=== PATIENT | male | born 1945 | race Caucasian/White ===

== ENCOUNTER 2017-10-04 18:20 | Emergency (ER) | payer MEDICARE, OTHER ==
[2017-10-04 18:59] VITALS: BP 123/71; PULSE 95; RESP 20; TEMP 97; O2SAT 97
== END 2017-10-04 18:42 | disposition home or self-care (01) | DRG 151 ==
LOC: ED 18:20
DX: R04.0 Epistaxis (principal); S00.81XA Abrasion of other part of head, initial encounter; W22.8XXA Striking against or struck by other objects, initial encounter
CPT/HCPCS: 99282

== ENCOUNTER 2018-04-24 09:34 | Inpatient (IN) | payer OTHER ==
[2018-04-24] MEDS ORDERED: ALBUTEROL/IPRATROPIUM 1 VIAL SOL ONE (09:41)
[2018-04-24] MEDS ORDERED: SODIUM CHLORIDE 0.9% 1000ML 1,000 ML IV ONE ×3 (09:43→09:46)
[2018-04-24] MEDS ORDERED: VANCOMYCIN HCL 500 MG PDS 1,000 MG in SODIUM CHLORIDE 0.9% 250 ML 250 ML IV ONE (09:44)
[2018-04-24] MEDS ORDERED: ALBUTEROL/IPRATROPIUM 1 VIAL SOL INH ONE (09:44)
[2018-04-24] MEDS ORDERED: CEFTRIAXONE 1 GM PDS 2 GM in SODIUM CHLORIDE 0.9% 50 ML 50 ML IV ONE (09:45)
[2018-04-24] MEDS ORDERED: SODIUM CHLORIDE 0.9% IV ONE (09:48)
[2018-04-24] MEDS ORDERED: VANCOMYCIN HCL IV ONE (09:48)
[2018-04-24] MEDS ORDERED: PHARMACOKINETICS 1 MISC ONE (09:48)
[2018-04-24] MEDS ORDERED: PDS IV ONE (09:48)
[2018-04-24 10:02] LABS: LACTIC ACID 1.8 mMol/L (0.0-2.0)
[2018-04-24] MEDS ORDERED: CEFTRIAXONE 1 GM PDS ONE (10:06)
[2018-04-24 10:25] LABS: BASOPHILS % (AUTO) 1 % (0-3); EOSINOPHILS % (AUTO) 1 % (0-9); HEMATOCRIT 37 % (39-53); HEMOGLOBIN 12.7 gm/dl (13.5-17.7); LYMPHOCYTES % (AUTO) 29.5 % (10-50); MEAN CORPUSCULAR HEMOGLOBIN 33.1 pg (27.0-32.0); MEAN CORPUSCULAR HGB CONC 34.2 gm/dl (32.0-36.0); MEAN CORPUSCULAR VOLUME 97 fL (80-100); MONOCYTES % (AUTO) 7.9 % (0-12); NEUTROPHILS % (AUTO) 61.3 % (37-80)
[2018-04-24 10:25] LABS: INR 2.26 (0.86-1.12)
[2018-04-24 10:26] LABS: ALBUMIN 2.4 gm/dl (3.4-5.0); BILIRUBIN,TOTAL 0.4 mg/dl (0.2-1.0); CALCIUM 8.3 mg/dl (8.5-10.1); CARBON DIOXIDE 30.9 mEq/L (21-32); CREATININE 1.14 mg/dl (0.80-1.30); MAGNESIUM 1.9 mg/dl (1.8-2.4); TOTAL PROTEIN 5.9 gm/dl (6.4-8.2)
[2018-04-24] MEDS ORDERED: VANCOMYCIN HYDROCHLORIDE 500 MG PDS IV ONE ×2 (10:37→23:24)
[2018-04-24] MEDS ORDERED: ALBUTEROL NEB SOL 2.5MG/3ML 1 VIAL SOL NEB PRN (10:51)
[2018-04-24] MEDS ORDERED: ACETAMINOPHEN 325 MG PO PRN (10:52)
[2018-04-24] MEDS: ALBUTEROL/IPRATROPIUM 1 VIAL SOL INH SCH ×3 (11:00→22:10)
[2018-04-24] MEDS ORDERED: WARFARIN SODIUM 5 MG TAB PO SCH ×2 (11:00→16:00)
[2018-04-24] MEDS ORDERED: SODIUM CHLORIDE 0.9% 1000ML 1,000 ML IV SCH (12:15)
[2018-04-24 13:08] LABS: APPEARANCE,URINE CLEAR; COLOR,URINE YELLOW
[2018-04-24 13:09] LABS: BACTERIA NEGATIVE (< 1+); BILIRUBIN,URINE NEGATIVE (NEGATIVE); CRYSTALS NEGATIVE (0-3 AVE/HPF); EPITHELIAL CELLS NEGATIVE (SQUAMOUS); GLUCOSE, URINE (UA) NEGATIVE (NEGATIVE); KETONES,URINE NEGATIVE (NEGATIVE); LEUKOCYTE ESTERASE ,URINE NEGATIVE (NEGATIVE); NITRATE,URINE NEGATIVE (NEGATIVE); OCCULT BLOOD,URINE NEGATIVE (NEG-TRACE); RBC,URINE NEG (0-3AV/HPF); UROBILINOGEN,URINE 0.2 (0.2-1.0 EU); WBC,URINE NEG (0-5AV/HPF)
[2018-04-24] MEDS ORDERED: SODIUM CHLORIDE 0.9% 50 ML 25 ML IV PRN (13:21)
[2018-04-24] MEDS ORDERED: CEFTRIAXONE 1 GM PDS 1 GM in SODIUM CHLORIDE 0.9% 50 ML 50 ML IV SCH (13:30)
[2018-04-24] MEDS ORDERED: VANCOMYCIN HCL 500 MG PDS 1,000 MG in SODIUM CHLORIDE 0.9% 250 ML 250 ML IV SCH ×2 (13:30→23:00)
[2018-04-24] MEDS ORDERED: VALPROIC ACID 250 MG SGL PO SCH (14:00)
[2018-04-24] MEDS: SODIUM CHLORIDE 0.9% 1000ML 1,000 ML IV SCH (14:13)
[2018-04-24] MEDS ORDERED: OLANZAPINE 2.5 MG TAB PO SCH (15:00)
[2018-04-24] MEDS: DIVALPROEX ECC 125 MG ECC PO SCH (16:46)
[2018-04-24] MEDS: OLANZAPINE 2.5 MG TAB PO SCH (16:46)
[2018-04-24] MEDS: CLONAZEPAM 0.5 MG TAB PO SCH (20:34)
[2018-04-24] MEDS: LEVETIRACETAM 100 MG/ML SOL PO SCH (20:36)
[2018-04-24] MEDS ORDERED: DIVALPROEX ECC 125 MG ECC PO SCH (21:00)
[2018-04-24] MEDS ORDERED: DIVALPROEX ECC PO SCH (21:00)
[2018-04-24] MEDS ORDERED: LEVETIRACETAM 100 MG/ML SOL PO SCH (21:00)
[2018-04-24] MEDS ORDERED: SODIUM CHLORIDE 0.9% 250 ML 250 ML IV ONE (23:24)
[2018-04-24] MEDS: VANCOMYCIN HCL 500 MG PDS 1,500 MG in SODIUM CHLORIDE 0.9% 250 ML 250 ML IV SCH (23:34)
[2018-04-25] MEDS: SODIUM CHLORIDE 0.9% 1000ML 1,000 ML IV SCH (04:30)
[2018-04-25] MEDS: ALBUTEROL/IPRATROPIUM 1 VIAL SOL INH SCH ×2 (04:33→11:32)
[2018-04-25] MEDS: CLONAZEPAM 0.5 MG TAB PO SCH (06:22)
[2018-04-25] MEDS ORDERED: LEVOTHYROXINE SODIUM 50 MCG TAB PO SCH (07:00)
[2018-04-25 07:26] LABS: CALCIUM 8.2 mg/dl (8.5-10.1); CARBON DIOXIDE 27.8 mEq/L (21-32); CREATININE 0.81 mg/dl (0.80-1.30); POTASSIUM 3.6 mMol/L (3.5-5.1)
[2018-04-25 07:32] LABS: INR 2.24 (0.86-1.12)
[2018-04-25 07:36] LABS: BASOPHILS % (AUTO) 1 % (0-3); EOSINOPHILS % (AUTO) 3 % (0-9); HEMATOCRIT 34 % (39-53); HEMOGLOBIN 12.2 gm/dl (13.5-17.7); LYMPHOCYTES % (AUTO) 31.3 % (10-50); MEAN CORPUSCULAR HEMOGLOBIN 34.6 pg (27.0-32.0); MEAN CORPUSCULAR HGB CONC 35.6 gm/dl (32.0-36.0); MEAN CORPUSCULAR VOLUME 97 fL (80-100); MONOCYTES % (AUTO) 9.4 % (0-12); NEUTROPHILS % (AUTO) 55.9 % (37-80)
[2018-04-25 07:54] VITALS: BP 112/64; TEMP 97.6
[2018-04-25 08:00] LABS: NORMAL RBCS PRESENT
[2018-04-25] MEDS ORDERED: LEVOFLOXACIN 500 MG TAB PO SCH (09:00)
[2018-04-25] MEDS ORDERED: LATANOPROST 0.005% SOL EACHEYE SCH (09:00)
[2018-04-25] MEDS ORDERED: CEFTRIAXONE 1 GM PDS 1 GM in SODIUM CHLORIDE 0.9% 50 ML 50 ML IV SCH (09:00)
[2018-04-25] MEDS ORDERED: PHENYTOIN SODIUM, ER 100 MG CAPSULE PO SCH (09:00)
[2018-04-25] MEDS: LEVETIRACETAM 100 MG/ML SOL PO SCH (09:08)
[2018-04-25] MEDS: DIVALPROEX ECC 125 MG ECC PO SCH ×3 (09:13→15:35)
[2018-04-25] MEDS ORDERED: VANCOMYCIN HYDROCHLORIDE 500 MG PDS IV ONE (11:26)
[2018-04-25] MEDS ORDERED: SODIUM CHLORIDE 0.9% 250 ML 250 ML IV ONE (11:26)
[2018-04-25] MEDS: VANCOMYCIN HCL 500 MG PDS 1,500 MG in SODIUM CHLORIDE 0.9% 250 ML 250 ML IV SCH (11:34)
[2018-04-25 11:47] VITALS: PULSE 80
[2018-04-25 15:35] VITALS: RESP 16; O2SAT 92
[2018-04-25] MEDS: OLANZAPINE 2.5 MG TAB PO SCH (15:35)
[2018-04-25] MEDS ORDERED: WARFARIN SODIUM 5 MG TAB PO SCH (18:00)
[2018-04-25 20:24] LABS: *VALPROIC ACID FREE 9 mcg/mL (5 - 25)
[2018-04-27] MEDS ORDERED: WARFARIN SODIUM 7.5 MG TAB PO SCH (16:00)
== END 2018-04-25 15:50 | disposition home health service (06) | DRG 195 ==
LOC: ED 09:34 → ACUTE CARE 10:41 → UNDOADMIN 10:41 → ACUTE CARE 12:40
PROVIDERS: ADMIT Family Medicine; ATTEND Family Medicine
DX: R50.9 Fever, unspecified (principal); J18.1 Lobar pneumonia, unspecified organism; R41.82 Altered mental status, unspecified; R09.02 Hypoxemia; I95.9 Hypotension, unspecified; G40.909 Epilepsy, unspecified, not intractable, without status epilepticus; Z79.01 Long term (current) use of anticoagulants
CPT/HCPCS: 36415; 71045; 80048; 80053; 80185; 81001; 83735; 85025; 85610; 87040; 93005; 94150; 94640; 94762; 96365; 99070; 99284; 99285; J0696; J3370; J7613; A9270-GY

== ENCOUNTER 2018-05-15 09:46 | Inpatient (IN) | payer OTHER ==
[2018-05-15 10:32] LABS: BASOPHILS % (AUTO) 1 % (0-3); EOSINOPHILS % (AUTO) 0 % (0-9); HEMATOCRIT 39 % (39-53); HEMOGLOBIN 13.2 gm/dl (13.5-17.7); LYMPHOCYTES % (AUTO) 28.3 % (10-50); MEAN CORPUSCULAR HEMOGLOBIN 32.2 pg (27.0-32.0); MEAN CORPUSCULAR HGB CONC 34.4 gm/dl (32.0-36.0); MEAN CORPUSCULAR VOLUME 94 fL (80-100); MONOCYTES % (AUTO) 7.4 % (0-12); NEUTROPHILS % (AUTO) 63.5 % (37-80)
[2018-05-15 10:38] LABS: CALCIUM 9.1 mg/dl (8.5-10.1); CARBON DIOXIDE 31.2 mEq/L (21-32); CREATININE 1.15 mg/dl (0.80-1.30); POTASSIUM 3.7 mMol/L (3.5-5.1)
[2018-05-15] MEDS ORDERED: LEVOFLOXACIN 25 MG/ML SOL IV ONE (11:14)
[2018-05-15] MEDS ORDERED: LEVOFLOXACIN 25 MG/ML 500 MG in SODIUM CHLORIDE 0.9% 100 ML 100 ML IV SCH (11:15)
[2018-05-15] MEDS: SODIUM CHLORIDE 0.9% FLUSH 10 ML SOL IV SCH ×3 (11:18→20:09)
[2018-05-15] MEDS ORDERED: WARFARIN SODIUM 2.5 MG TAB PO SCH ×2 (13:30→18:00)
[2018-05-15] MEDS: AZITHROMYCIN 500 MG PDS IV SCH (14:17)
[2018-05-15] MEDS ORDERED: ALBUTEROL NEB SOL 2.5MG/3ML 1 VIAL SOL NEB PRN (14:46)
[2018-05-15] MEDS ORDERED: DIVALPROEX 250 MG TAB.ER.24H PO ONE (15:51)
[2018-05-15] MEDS: OLANZAPINE 2.5 MG TAB PO SCH (15:58)
[2018-05-15] MEDS: DIVALPROEX ECC 125 MG ECC PO SCH ×2 (16:59→20:10)
[2018-05-15] MEDS ORDERED: ACETAMINOPHEN 325 MG PO PRN (19:22)
[2018-05-15] MEDS: LEVETIRACETAM 100 MG/ML SOL PO SCH (20:11)
[2018-05-15] MEDS: CLONAZEPAM 0.5 MG TAB PO SCH (20:13)
[2018-05-16] MEDS: SODIUM CHLORIDE 0.9% FLUSH 10 ML SOL IV SCH ×4 (05:06→20:44)
[2018-05-16] MEDS: LEVOTHYROXINE SODIUM 50 MCG TAB PO SCH (06:10)
[2018-05-16] MEDS: CLONAZEPAM 0.5 MG TAB PO SCH ×2 (06:11→20:45)
[2018-05-16 08:22] LABS: INR 6.07 (0.86-1.12)
[2018-05-16] MEDS: DIVALPROEX ECC 125 MG ECC PO SCH ×4 (09:13→20:46)
[2018-05-16] MEDS: LEVETIRACETAM 100 MG/ML SOL PO SCH ×2 (09:15→20:47)
[2018-05-16] MEDS: POTASSIUM CHLORIDE 10 MEQ TER PO SCH (09:17)
[2018-05-16] MEDS: PHENYTOIN SODIUM, ER 100 MG CAPSULE PO SCH (09:17)
[2018-05-16] MEDS: AZITHROMYCIN 500 MG PDS IV SCH (09:18)
[2018-05-16] MEDS: OLANZAPINE 2.5 MG TAB PO SCH (16:00)
[2018-05-17] MEDS: LEVOTHYROXINE SODIUM 50 MCG TAB PO SCH (06:23)
[2018-05-17] MEDS: CLONAZEPAM 0.5 MG TAB PO SCH ×2 (06:23→21:03)
[2018-05-17] MEDS: SODIUM CHLORIDE 0.9% FLUSH 10 ML SOL IV SCH ×5 (06:39→21:03)
[2018-05-17 07:34] LABS: INR 3.48 (0.86-1.12)
[2018-05-17] MEDS: DIVALPROEX ECC 125 MG ECC PO SCH ×4 (08:53→21:04)
[2018-05-17] MEDS: AZITHROMYCIN 500 MG PDS IV SCH (08:53)
[2018-05-17] MEDS: PHENYTOIN SODIUM, ER 100 MG CAPSULE PO SCH (08:53)
[2018-05-17] MEDS: POTASSIUM CHLORIDE 10 MEQ TER PO SCH (08:53)
[2018-05-17] MEDS: LEVETIRACETAM 100 MG/ML SOL PO SCH ×2 (08:54→21:04)
[2018-05-17] MEDS: FUROSEMIDE 40 MG TAB PO SCH (12:10)
[2018-05-17] MEDS: OLANZAPINE 2.5 MG TAB PO SCH (15:37)
[2018-05-18] MEDS: SODIUM CHLORIDE 0.9% FLUSH 10 ML SOL IV SCH ×3 (03:18→19:57)
[2018-05-18] MEDS: CLONAZEPAM 0.5 MG TAB PO SCH ×2 (06:15→20:31)
[2018-05-18] MEDS: LEVOTHYROXINE SODIUM 50 MCG TAB PO SCH (06:16)
[2018-05-18 07:44] LABS: INR 2.37 (0.86-1.12)
[2018-05-18] MEDS: DIVALPROEX ECC 125 MG ECC PO SCH ×4 (08:46→20:32)
[2018-05-18] MEDS: PHENYTOIN SODIUM, ER 100 MG CAPSULE PO SCH (08:46)
[2018-05-18] MEDS: POTASSIUM CHLORIDE 10 MEQ TER PO SCH (08:47)
[2018-05-18] MEDS: FUROSEMIDE 40 MG TAB PO SCH (08:48)
[2018-05-18] MEDS: LEVETIRACETAM 100 MG/ML SOL PO SCH ×2 (08:51→20:32)
[2018-05-18] MEDS: AZITHROMYCIN 500 MG PDS IV SCH (12:20)
[2018-05-18] MEDS ORDERED: WARFARIN SODIUM 7.5 MG TAB PO SCH (13:20)
[2018-05-18] MEDS: OLANZAPINE 2.5 MG TAB PO SCH (14:52)
[2018-05-19] MEDS: CLONAZEPAM 0.5 MG TAB PO SCH ×2 (06:29→20:00)
[2018-05-19] MEDS: LEVOTHYROXINE SODIUM 50 MCG TAB PO SCH (06:31)
[2018-05-19] MEDS: SODIUM CHLORIDE 0.9% FLUSH 10 ML SOL IV SCH ×2 (07:25→13:46)
[2018-05-19] MEDS: PHENYTOIN SODIUM, ER 100 MG CAPSULE PO SCH (09:13)
[2018-05-19] MEDS: LEVETIRACETAM 100 MG/ML SOL PO SCH ×2 (09:14→20:00)
[2018-05-19] MEDS: POTASSIUM CHLORIDE 10 MEQ TER PO SCH (09:14)
[2018-05-19] MEDS: FUROSEMIDE 80 MG TAB PO SCH (09:14)
[2018-05-19] MEDS: DIVALPROEX ECC 125 MG ECC PO SCH ×4 (09:14→20:00)
[2018-05-19] MEDS: OLANZAPINE 2.5 MG TAB PO SCH (15:39)
[2018-05-19] MEDS ORDERED: WARFARIN SODIUM 5 MG TAB PO SCH (18:00)
[2018-05-20] MEDS: LEVOTHYROXINE SODIUM 50 MCG TAB PO SCH (06:33)
[2018-05-20] MEDS: CLONAZEPAM 0.5 MG TAB PO SCH (06:33)
[2018-05-20] MEDS: FUROSEMIDE 80 MG TAB PO SCH (08:02)
[2018-05-20] MEDS: POTASSIUM CHLORIDE 10 MEQ TER PO SCH (08:02)
[2018-05-20] MEDS: PHENYTOIN SODIUM, ER 100 MG CAPSULE PO SCH (08:02)
[2018-05-20] MEDS: LEVETIRACETAM 100 MG/ML SOL PO SCH (08:03)
[2018-05-20] MEDS: DIVALPROEX ECC 125 MG ECC PO SCH ×2 (08:05→12:39)
[2018-05-20 09:25] VITALS: BP 129/80; TEMP 97.6; O2SAT 90
[2018-05-20 10:12] VITALS: RESP 20
[2018-05-20 15:26] VITALS: PULSE 70
[2018-05-20] MEDS ORDERED: WARFARIN SODIUM 7.5 MG TAB PO SCH (18:00)
== END 2018-05-20 15:45 | disposition home health service (06) | DRG 193 ==
LOC: ED 09:46 → UNDOADMIN 11:20 → ACUTE CARE 11:20
PROVIDERS: ADMIT Family Medicine; ATTEND Family Medicine
DX: J18.1 Lobar pneumonia, unspecified organism (principal); R50.9 Fever, unspecified; G40.319 Generalized idiopathic epilepsy and epileptic syndromes, intractable, without status epilepticus; R06.02 Shortness of breath; Z55.9 Problems related to education and literacy, unspecified; R79.1 Abnormal coagulation profile; Z79.01 Long term (current) use of anticoagulants; M40.209 Unspecified kyphosis, site unspecified
CPT/HCPCS: 36415; 71045; 80048; 85025; 85610; 87040; 94150; 94762; 99283; 99284; J0456; J1956; J7613; A6232; A9270; A9270-GY

== ENCOUNTER 2018-05-23 09:22 | Emergency (ER) | payer OTHER ==
[2018-05-23 09:41] VITALS: TEMP 99.5
[2018-05-23 10:11] LABS: BASOPHILS % (AUTO) 1 % (0-3); EOSINOPHILS % (AUTO) 3 % (0-9); HEMATOCRIT 40 % (39-53); HEMOGLOBIN 13.8 gm/dl (13.5-17.7); LACTIC ACID 1.6 mMol/L (0.0-2.0); LYMPHOCYTES % (AUTO) 45.4 % (10-50); MEAN CORPUSCULAR HEMOGLOBIN 32.2 pg (27.0-32.0); MEAN CORPUSCULAR HGB CONC 34.2 gm/dl (32.0-36.0); MEAN CORPUSCULAR VOLUME 94 fL (80-100); MONOCYTES % (AUTO) 12.8 % (0-12); NEUTROPHILS % (AUTO) 37.6 % (37-80)
[2018-05-23 10:21] LABS: ALBUMIN 2.9 gm/dl (3.4-5.0); BILIRUBIN,TOTAL 0.3 mg/dl (0.2-1.0); CALCIUM 9.1 mg/dl (8.5-10.1); CREATININE 0.88 mg/dl (0.80-1.30)
[2018-05-23 10:37] LABS: INR 1.49 (0.86-1.12)
[2018-05-23 12:36] LABS: APPEARANCE,URINE Clear; BILIRUBIN,URINE NEGATIVE (NEGATIVE); COLOR,URINE Yellow; GLUCOSE, URINE (UA) NEGATIVE (NEGATIVE); KETONES,URINE NEGATIVE (NEGATIVE); LEUKOCYTE ESTERASE ,URINE NEGATIVE (NEGATIVE); NITRATE,URINE NEGATIVE (NEGATIVE); OCCULT BLOOD,URINE TRACE LYSED (NEG-TRACE); UROBILINOGEN,URINE 0.2 (0.2-1.0 EU)
[2018-05-23 12:49] LABS: BACTERIA NEGATIVE (< 1+); CRYSTALS NEGATIVE (0-3 AVE/HPF); RBC,URINE NEG (0-3AV/HPF); WBC,URINE 0-3 (0-5AV/HPF)
[2018-05-23 15:55] VITALS: BP 125/59; PULSE 65; RESP 19; O2SAT 96
== END 2018-05-23 14:40 | disposition home health service (06) | DRG 864 ==
LOC: ED 09:22
DX: R50.9 Fever, unspecified (principal); R09.02 Hypoxemia; Z87.01 Personal history of pneumonia (recurrent)
CPT/HCPCS: 36415; 71045; 80053; 81001; 85025; 85378; 85610; 87040; 99282; 99285

== ENCOUNTER 2018-07-05 10:07 | Emergency (ER) | payer OTHER ==
[2018-07-05 10:15] VITALS: TEMP 99.7
[2018-07-05 10:47] LABS: BASOPHILS % (AUTO) 0 % (0-3); EOSINOPHILS % (AUTO) 0 % (0-9); HEMATOCRIT 41 % (39-53); HEMOGLOBIN 13.5 gm/dl (13.5-17.7); LYMPHOCYTES % (AUTO) 22.7 % (10-50); MEAN CORPUSCULAR HEMOGLOBIN 31.8 pg (27.0-32.0); MEAN CORPUSCULAR HGB CONC 32.8 gm/dl (32.0-36.0); MEAN CORPUSCULAR VOLUME 97 fL (80-100); MONOCYTES % (AUTO) 7.8 % (0-12); NEUTROPHILS % (AUTO) 68.9 % (37-80)
[2018-07-05 10:50] LABS: LACTIC ACID 1.4 mMol/L (0.0-2.0)
[2018-07-05 10:55] LABS: ABG PH 7.48 (7.35-7.45)
[2018-07-05 11:05] LABS: ALBUMIN 2.9 gm/dl (3.4-5.0); ALKALINE PHOSPHATASE 73 IU/L (46-116); ALT 17 IU/L (14-63); AST 18 IU/L (15-37); BILIRUBIN,TOTAL 0.4 mg/dl (0.2-1.0); BLOOD UREA NITROGEN 17 mg/dl (7-18); CALCIUM 8.7 mg/dl (8.5-10.1); CREATININE 0.98 mg/dl (0.80-1.30); GLUCOSE 121 mg/dl (74-106); TOTAL PROTEIN 6.8 gm/dl (6.4-8.2); TROP I < 0.017 ng/ml (0.000-0.056)
[2018-07-05 11:09] LABS: CARBON DIOXIDE 35.3 mEq/L (21-32)
[2018-07-05 11:10] LABS: CHLORIDE 104 mMol/L (98-107); POTASSIUM 3.4 mMol/L (3.5-5.1); SODIUM 142 mMol/L (136-145)
[2018-07-05] MEDS ORDERED: ALBUTEROL/IPRATROPIUM 1 VIAL SOL ONE (13:45)
[2018-07-05 14:50] VITALS: BP 109/58; PULSE 79; RESP 18; O2SAT 99
== END 2018-07-05 14:35 | disposition home or self-care (01) | DRG 81 ==
LOC: ED 10:07
DX: R40.0 Somnolence (principal); R50.9 Fever, unspecified
CPT/HCPCS: 36415; 36600; 70450; 71045; 80053; 82803; 83880; 84484; 85025; 93005; 99283; 99284

== ENCOUNTER 2018-07-09 19:46 | Emergency (ER) | payer OTHER ==
[2018-07-09 20:00] VITALS: RESP 12; TEMP 98.2
[2018-07-09] MEDS ORDERED: ALBUTEROL NEB SOL 2.5MG/3ML 1 VIAL SOL ONE ×2 (20:30→20:32)
[2018-07-09] MEDS: ALBUTEROL NEB SOL 2.5MG/3ML 1 VIAL SOL NEB ONE (20:35)
[2018-07-09 20:36] LABS: BASOPHILS % (AUTO) 1 % (0-3); EOSINOPHILS % (AUTO) 2 % (0-9); HEMATOCRIT 46 % (39-53); HEMOGLOBIN 14.6 gm/dl (13.5-17.7); LYMPHOCYTES % (AUTO) 34.4 % (10-50); MEAN CORPUSCULAR HEMOGLOBIN 31.4 pg (27.0-32.0); MEAN CORPUSCULAR VOLUME 98 fL (80-100); MONOCYTES % (AUTO) 10.6 % (0-12)
[2018-07-09 20:49] VITALS: O2SAT 96
[2018-07-09 20:49] LABS: CALCIUM 9.2 mg/dl (8.5-10.1); CREATININE 0.91 mg/dl (0.80-1.30); POTASSIUM 3.4 mMol/L (3.5-5.1)
[2018-07-09] MEDS ORDERED: CODEINE/GUAIFENESIN 5 ML ML ONE ×2 (20:50)
[2018-07-09 20:51] LABS: CARBON DIOXIDE 36.5 mEq/L (21-32)
[2018-07-09] MEDS: GUAIFENESIN 200 MG/10 ML SOL PO ONE (20:54)
[2018-07-09] MEDS ORDERED: CLINDAMYCIN 150 MG/ML SOL ONE (20:56)
[2018-07-09] MEDS: CLINDAMYCIN 150 MG/ML 900 MG in SODIUM CHLORIDE 0.9% 100 ML 100 ML IV ONE (21:05)
[2018-07-09] MEDS ORDERED: POTASSIUM CHLORIDE 2 MEQ/ML SOL IV ONE (21:33)
[2018-07-09] MEDS: POTASSIUM CHLORIDE 2 MEQ/ML 20 MEQ, LIDOCAINE HCL 1% MDV 2 ML in SODIUM CHLORIDE 0.9% 2... IV ONE (22:07)
[2018-07-10 00:14] VITALS: BP 157/74; PULSE 81
== END 2018-07-09 23:57 | disposition home or self-care (01) | DRG 204 ==
LOC: ED 19:46
DX: R91.8 Other nonspecific abnormal finding of lung field (principal); J69.0 Pneumonitis due to inhalation of food and vomit; R09.02 Hypoxemia
CPT/HCPCS: 36415; 71045; 80048; 85025; 96365; 96366; 99283; 99285; J3480; J3490; J7613; A9270-GY